=== PATIENT | male | born 1955 | race Caucasian/White ===

== ENCOUNTER 2016-08-25 19:06 | Observation (INO) | payer BC, OTHER ==
[2016-08-25 20:47] LABS: Hematocrit 45 % (42-52); Mean Corpuscular HGB Conc 33 g/dl (31-36); Mean Corpuscular Hemoglobin 28 pg (27-31); Mean Corpuscular Volume 84 fL (80-94); Mean Platelet Volume 7 um3 (7.4-10.4); Red Blood Count 5.42 10^6/ul (4.0-5.4); Red Cell Distribution Width 14 % (10.5-15)
[2016-08-25 21:02] LABS: Albumin 4.1 g/dL (3.2-5.2); BUN/Creatinine Ratio 22.5 (8-20); EGFR African American 126.4 (>60); EGFR Non-African American 98.3 (>60); Globulin 3.1 g/dL (2-4); Potassium 3.7 mmol/L (3.5-5.0); Total Bilirubin 0.3 mg/dL (0.2-1.0); Total Protein 7.2 g/dL (6.4-8.9)
[2016-08-25] MEDS ORDERED: Aspirin TAB* 325 MG PO ONE (21:49)
--- NOTE | 2016-08-25 22:19 | ED ---
I, Herberth,Kamryn, scribed for Jose C Child MD on 08/25/16 at 2 . Lower Extremity - HPI Summary HPI Summary: This 61 y/o male presents to ED for gradually worsening LLE #1 toe pain since 3 days ago. Positive edema and erythema. Negative CP and SOB. Pt and present at bedside also expresses concern about discoloration. Positive for subjective fever and stabbing pain. PMHx includes kidney CA s/p partial nephrectomy, HTN, and DVT at LLE. Hx of coumadin tx for 6 months. He is currently not on blood thinner. Pt is not a current smoker. FHx is positive for kidney CA but denies any blood clotting dz. Primary care used to involve Dr. Jacome at [facility], but has not follow up with his PCP since about a year ago. - History of Current Complaint Chief Complaint: EDExtremityLower Stated Complaint: LEFT FOOT COMPLAINT Time Seen by Provider: 08/25/16 19:58 Hx Obtained From: Patient, Family/Charge Weigher - present at bedside Mechanism Of Injury: Unknown Onset of Pain: Days Onset/Duration: Still Present - since 3 weeks Pain Intensity: 3 Pain Scale Used: 0-10 Numeric Timing: Constant Location: Is Discrete @ - LLE great toe Character Of Pain: Sharp, Dull Associated Signs And Symptoms: Positive: Swelling, Redness Aggravating Factor(s): Standing, Other - pressure by close-toe shoes Alleviating Factor(s): Rest Able to Bear Weight: Yes - Allergies/Home Medications Allergies/Adverse Reactions: Allergies Allergy/AdvReac Type Severity Reaction Status Date / Time CONTRAST Allergy Nausea And Uncoded 08/21/15 16:17 Vomiting PMH/Surg Hx/FS Hx/Imm Hx Endocrine/Hematology History: Denies: Hx Diabetes Cardiovascular History: Reports: Hx Deep Vein Thrombosis, Hx Hypercholesterolemia, Hx Hypertension - Cancer History Cancer Type, Location and Year: kidney - Surgical History Surgery Procedure, Year, and Place: partial nephrectomy Infectious Disease History: No Infectious Disease History: Denies: Traveled Outside the [place] in Last 30 Days - Family History Known Family History: Positive: Other - Positive for kidney CA Negative: Blood Disorder - Social History Alcohol Use: None Hx Substance Use: No Substance Use Type: Reports: None Hx Tobacco Use: No Smoking Status (MU): Never Smoked Tobacco Review of Systems Positive: Fever - subjective fever at LLE toe Negative: Chest Pain Negative: Shortness Of Breath Positive: Other - discoloration and edema at LLE great toe Negative: Anxious, Depressed All Other Systems Reviewed And Are Negative: Yes Physical Exam - Summary Physical Exam Summary: General: Comfortable, pleasant, alert HEENT: Moist mucosa Neck: soft, supple, no adenopathy, no edema Heart: S1, S2, RRR, no murmurs, rubs, or gallops Lungs: Clear to auscultation, breathing comfortable, no wheezes or rales. Abdominal: Soft, flat, nontender Extremities: No edema, no calf tenderness. Distal pulse at BLE intact including DP and posterior tibia. Foot is warm to touch. LLE great toe is cooler than the rest of the foot. cap refills 3 seconds. Dusky hues at medial aspect of the toe. Distal aspect is slightly mottled and has cap refill of 3 seconds. Neuro: Alert and oriented x 3. Psych: Logical, coherent Triage Information Reviewed: Yes Vital Signs On Initial Exam: Initial Vitals Temp Pulse Resp BP Pulse Ox 97.9 F 81 16 180/115 98 08/25/16 19:10 08/25/16 19:10 08/25/16 19:10 08/25/16 19:10 08/25/16 19:10 Vital Signs Reviewed: Yes Diagnostics - Vital Signs Vital Signs Temp Pulse Resp BP Pulse Ox 08/25/16 19:10 97.9 F 81 16 180/115 98 - Laboratory Lab Results: Lab Results 08/25/16 08/25/16 08/25/16 Range/Units 20:30 20:30 20:30 WBC 7.0 (3.5-10.8) 10^3/ul RBC 5.42 H (4.0-5.4) 10^6/ul Hgb 15.0 (14.0-18.0) g/dl Hct 45 (42-52) % MCV 84 (80-94) fL MCH 28 (27-31) pg MCHC 33 (31-36) g/dl RDW 14 (10.5-15) % Plt Count 515 H (150-450) 10^3/ul MPV 7 L (7.4-10.4) um3 Neut % (Auto) 64.8 (38-83) % Lymph % (Auto) 26.8 (25-47) % [place] % (Auto) 6.1 (1-9) % Eos % (Auto) 1.6 (0-6) % Baso % (Auto) 0.7 (0-2) % Absolute Neuts (auto) 4.6 (1.5-7.7) 10^3/ul Absolute Lymphs (auto) 1.9 (1.0-4.8) 10^3/ul Absolute Monos (auto) 0.4 (0-0.8) 10^3/ul Absolute Eos (auto) 0.1 (0-0.6) 10^3/ul Absolute Basos (auto) 0.1 (0-0.2) 10^3/ul Absolute Nucleated RBC 0.01 10^3/ul Nucleated RBC % 0.1 INR (Anticoag Therapy) 0.99 (0.89-1.11) Sodium 138 (133-145) mmol/L Potassium 3.7 (3.5-5.0) mmol/L Chloride 103 (101-111) mmol/L Carbon Dioxide 28 (22-32) mmol/L Anion Gap 7 (2-11) mmol/L BUN 18 (6-24) mg/dL Creatinine 0.80 (0.67-1.17) mg/dL Est GFR ( Amer) 126.4 (>60) Est GFR (Non-Af Amer) 98.3 (>60) BUN/Creatinine Ratio 22.5 H (8-20) Glucose 128 H (70-100) mg/dL Lactic Acid (0.5-2.0) mmol/L Calcium 9.0 (8.6-10.3) mg/dL Total Bilirubin 0.30 (0.2-1.0) mg/dL AST 17 (13-39) U/L ALT 22 (7-52) U/L Alkaline Phosphatase 104 (34-104) U/L Total Protein 7.2 (6.4-8.9) g/dL Albumin 4.1 (3.2-5.2) g/dL Globulin 3.1 (2-4) g/dL Albumin/Globulin Ratio 1.3 (1-3) 08/25/16 Range/Units 20:30 WBC (3.5-10.8) 10^3/ul RBC (4.0-5.4) 10^6/ul Hgb (14.0-18.0) g/dl Hct (42-52) % MCV (80-94) fL MCH (27-31) pg MCHC (31-36) g/dl RDW (10.5-15) % Plt Count (150-450) 10^3/ul MPV (7.4-10.4) um3 Neut % (Auto) (38-83) % Lymph % (Auto) (25-47) % [place] % (Auto) (1-9) % Eos % (Auto) (0-6) % Baso % (Auto) (0-2) % Absolute Neuts (auto) (1.5-7.7) 10^3/ul Absolute Lymphs (auto) (1.0-4.8) 10^3/ul Absolute Monos (auto) (0-0.8) 10^3/ul Absolute Eos (auto) (0-0.6) 10^3/ul Absolute Basos (auto) (0-0.2) 10^3/ul Absolute Nucleated RBC 10^3/ul Nucleated RBC % INR (Anticoag Therapy) (0.89-1.11) Sodium (133-145) mmol/L Potassium (3.5-5.0) mmol/L Chloride (101-111) mmol/L Carbon Dioxide (22-32) mmol/L Anion Gap (2-11) mmol/L BUN (6-24) mg/dL Creatinine (0.67-1.17) mg/dL Est GFR ( Amer) (>60) Est GFR (Non-Af Amer) (>60) BUN/Creatinine Ratio (8-20) Glucose (70-100) mg/dL Lactic Acid 1.4 (0.5-2.0) mmol/L Calcium (8.6-10.3) mg/dL Total Bilirubin (0.2-1.0) mg/dL AST (13-39) U/L ALT (7-52) U/L Alkaline Phosphatase (34-104) U/L Total Protein (6.4-8.9) g/dL Albumin (3.2-5.2) g/dL Globulin (2-4) g/dL Albumin/Globulin Ratio (1-3) Result Diagrams: 08/25/16 20:30 08/25/16 20:30 Lab Statement: Any lab studies that have been ordered have been reviewed, and results considered in the medical decision making process. - CT CT Ab/P without contrast CT Interpretation Completed By: Radiologist - See EMR for official reading Re-Evaluation - Re-Evaluation First Eval Re-Evaluation Time: 21:59 Comment: MD in room to update plan of care involving CTA imagings, hospital admit, and possible transfer for vascular surgery treatment. Lower Extremity Course/Dx - Course Assessment/Plan: He comes in 2 weeks left great toe arterial compromised. Etiology unknown at this point. PMHx does include DVT at same LLE. Physical findings and plan of care are discussd with Dr. Lopez the hospitalist and Dr. Sheriff the vascular surgeon at [facility], who suggests aneurysm workup consisting CTA Abd, CTA BLE run off, and CTA chest at [facility]. If any positive findings, pt will be appropriately transferred to facility with available service from vascular surgeon. Unfortunately after further discussion, Pt reports allergy to IV contrast and had partial nephrectomy. From the past workup , his allergic reaction has become progressively worse each time. In place of that we will do dry CT scan. We will start with CT abd/chest to look for anuerysm as well as Arterial artery US to look for dissection. Should these all be negative, Dr. Lopez will accept the admission of this patient. Dr. Samuels made aware of this plan. Transfer is still a possibility should we find any positive findings for dissection or anuerysm. 20 minutes later, the pt's states that they just remembered that he does have hx of AAA. Prior studies were here. We will further characterize with studies and possibly transfer. Dr. Samuels has been updated. - Diagnoses Provider Diagnoses: Arterial embolism - Physician Notifications Discussed Care of Patient With: Dr. Patricia (Ortho) at 2025 PM -- appropriate for workup for possible anterior emboli. Dr. Lopez (Hospitalist) at 2123 PM - - recommends talking vascular surgeon first. [facility] Transfer center paged at 4 PM. Re-paged at 2130 PM. Call returned at 2132 PM. Per RN, there is currently no bed available. We are still attempting to get the vascular surgeon' s consult, and currently waiting a call-back. Dr. Sheriff (Vascular surgeon at [facility]) at 2141 PM. -- to get an aneurysm workup consisting of CTA abd, BLE run off. CTA chest if negative, echocardiogram for jamari thrombose. Will admit the pt to hospital for these workup. Dr. Sheriff states all these workups don' t have to be done tonight. If anything found, pt will be transported else where for vascular surgoen's treatment. At this point, recommended starting on ASA, not heparin. Again confirms that there is no bed available. Dr. Lopez ( Hospitalist) at 2151 PM. Discharge - Discharge Plan Condition: Stable Disposition: OTHER Discharge Disposition Comment: Signed out at shift change. Referrals: Betty Jacome MD [Primary Care Provider] - The documentation as recorded by the Herberth mccoy Soohyun accurately reflects the service I personally performed and the decisions made by me, Jose C Child MD.
[2016-08-25] MEDS ORDERED: hydrALAZINE IV* 20 MG/ML VIAL IV SLOW PU ONE (22:27)
[2016-08-25] MEDS ORDERED: amLODIPine TAB* 5 MG PO ONE (22:28)
--- NOTE | 2016-08-25 22:30 | ED ---
Progress - Progress Note Progress Note: Pt blood pressure was 160/115. We will re check, if over 140/90, we will treat. if this does not improve then Dr. Samuels to be notified for possible labetalol or esmolol drip. HR is 80s. Discussion regarding this was had with patient, and bedside RN. Pt denies abd or back pain or flank pain or groin pain. again this began 2 weeks ago. I do not believe we need to treat this at this point as acute dissection. LIkely patient may need transfer. Re-Evaluation - Re-Evaluation First Eval Re-Evaluation Time: 21:59 Comment: MD in room to update plan of care involving CTA imagings, hospital admit, and possible transfer for vascular surgery treatment. Course/Dx - Diagnoses Provider Diagnoses: Arterial embolism - Provider Notifications Discussed Care Of Patient With: Dr. Patricia (Ortho) at 2025 PM -- appropriate for workup for possible anterior emboli. Dr. Lopez (Hospitalist) at 2123 PM - - recommends talking vascular surgeon first. [facility] Transfer center paged at 2123 PM. Re-paged at 2130 PM. Call returned at 2132 PM. Per RN, there is currently no bed available. We are still attempting to get the vascular surgeon' s consult, and currently waiting a call-back. Dr. Sheriff (Vascular surgeon at [facility]) at 2140 PM. -- to get an aneurysm workup consisting of CTA abd, BLE run off. CTA chest if negative, echocardiogram for jamari thrombose. Will admit the pt to hospital for these workup. Dr. Sheriff states all these workups don' t have to be done tonight. If anything found, pt will be transported else where for vascular surgoen's treatment. At this point, recommended starting on ASA, not heparin. Again confirms that there is no bed available. Dr. Lopez ( Hospitalist) at 2150 PM.
--- NOTE | 2016-08-25 23:16 | RAD ---
INDICATION: Blue LEFT great toe. Assess for aneurysm. Post partial nephrectomy. COMPARISON: August 21, 2015 CT. April 12, [address] contrast-enhanced CT documenting bilateral parapelvic renal cysts and absence of hydronephrosis. TECHNIQUE: Multidetector CT images were obtained from the lung apices to the ischial tuberosities without contrast. Assessment of the viscera limited without contrast. CHEST REPORT: Clear lungs and pleural spaces. Negative for thoracic lymphadenopathy, cardiomegaly, pericardial effusion. Normal diameter thoracic aorta. Negative for suspicious thoracic osseous lesions. Multilevel thoracic degenerative spondylosis. CHEST IMPRESSION: No acute intrathoracic disease evident. ABDOMEN PELVIS REPORT: Unremarkable unenhanced liver. Contracted gallbladder with multiple small stones without additional CT abnormality of the gallbladder. Negative for biliary dilatation. Unremarkable pancreas and spleen. Negative for CT abnormality of the upper GI, small bowel, or medially extending into cecal appendix. Mild diverticulosis of the colon primarily involving the descending and sigmoid segments without findings of diverticulitis. Negative for ascites, free air, hernias. Normal adrenal glands. Bilateral large parapelvic renal cysts. Negative for hydronephrosis. 1.8 cm simple cortical cyst upper pole RIGHT kidney. Minimal dystrophic calcification at the site of the lateral midpole LEFT focal renal lesion resection. No suspicious focal renal lesions evident. Unremarkable ureters and moderately distended urinary bladder. Unremarkable prostate. Symmetric seminal vesicles. Negative for lymphadenopathy. Fusiform aneurysm of the infrarenal abdominal aorta measuring up to 3.6 x 3.3 cm orthogonal diameter compared with 3.4 x 3.0 cm on the August 21, 2015 exam. The aneurysm extends approximate 5.5 cm cephalocaudal without gross change. Negative for periaortic hematoma. 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 No suspicious focal osseous lesions evident. Bilateral hip and lumbar sacral spine degenerative arthropathy. ABDOMEN PELVIS IMPRESSION: 1. Fusiform aneurysm of the infrarenal abdominal aorta measuring up to 3.6 x 3.3 cm orthogonal diameter compared with 3.4 x 3.0 cm on the August 21, 2015 exam. 2. Cholelithiasis. 3. No suspicious focal renal lesions within limits of noncontrast CT. Negative for hydronephrosis. 4. Colonic diverticulosis without findings of diverticulitis.
[2016-08-26] MEDS ORDERED: traMADol TAB* 50 MG PO PRN (03:44)
[2016-08-26] MEDS ORDERED: traMADol TAB* 50 MG ONE (03:53)
[2016-08-26] MEDS ORDERED: Ondansetron INJ* 2 MG/ML VIAL IV PRN (03:59)
[2016-08-26] MEDS ORDERED: Acetaminophen TAB* 325 MG PO PRN (03:59)
[2016-08-26] MEDS ORDERED: Melatonin (NF) 3 MG TAB PO PRN (03:59)
[2016-08-26] MEDS ORDERED: oxyCODONE TAB* 5 MG TAB PO PRN (03:59)
--- NOTE | 2016-08-26 04:02 | HP ---
H&P (Free Text) History and Physical: PCP: none Date/Time of Evaluation: 08/26/2016 0115 CC: L 1st toe painful & discolored HPI: Mr Nieves is a 61YO [place] male who speaks Welsh well. He has a HX of renal cell CA s/p partial L nephrectomy, HTN, LLE DVT s/p 6months anticoagulation, & 3cm AAA whose historic details are difficult to chronologically delineate. He reports onset 2-4weeks ago of L 1st toe pain and discoloration which has been continuous and possibly worsening. He denies injury , although personally relates it to wearing tight shoes. There has been no F/C, other wounds, or issues. He and his report the toe is reddish maroon while elevated and deep purple/black while down. He denies HX atrial fibrillation or irregular pulse. Dr Child, ED, reports the toe is cyanotic with poor capillary refill, but with intact B dorsalis pedis and posterior tibial pulses. Work up reveals hypertensive, but otherwise stable vitals. Labs are unremarkable. Vascular consult via phone was requested upon contacting me for admission. Dr Lay, vascular surgery [place], advised this was classic "Blue Toe Syndrome" and advised evaluation for embolic source in the LLE arterial tree, CTA chest/abd/pel, and ECHO. She did not feel the 3.6cm AAA was a likely source and was not a candidate for intervention based on size alone although further evaluation should be made via MRA to definitively r/o significant thrombus. In the interim she advised not to anticoagulate and just use aspirin. PMedHx renal cell CA s/p partial L nephrectomy HTN HLD HX LLE DVT 3.6cm AAA Allergies CONTRAST Allergy (Uncoded 08/21/15 16:17) Nausea And Vomiting Ambulatory Orders Lisinopril TAB* [Prinivil TAB*] 5 mg PO DAILY 08/21/15 Simvastatin (NF) [Zocor (NF)] 40 mg PO DAILY 08/21/15 traMADol TAB* [Ultram*] 50 mg PO Q6HR PRN #20 tab 08/21/15 PSurgHx partial L nephrectomy SocHx: no tobacco, mild alcohol, no recreational drugs; lives with his ; works maintenance; full code status FamHx: Mother & Father passed of "old age". ROS: as above, otherwise reviewed and all were negative Constitutional: NAD, normally developed, mildly overweight white [place] male vitals: Vital Signs Temp 36.8 C 08/26/16 02:38 Pulse 64 08/26/16 03:00 Resp 16 08/26/16 03:00 BP 146/100 08/26/16 03:00 Pulse Ox 96 08/26/16 03:00 Intake & Output 08/25/16 08/25/16 08/26/16 11:59 23:59 11:59 Weight 86.183 kg HEENM: atraumatic; sclera/conjunctiva: non-icteric/clear; hearing: clinically intact; oropharynx: clear, mucosa moist Neck: soft tissue: non-tender; thyroid: normal Pulmonary: clear to auscultation bilaterally, good aeration, no accessory muscle use CV: RR/RR, normal S1S2, no carotid bruit, no jugular venous distention, 2+ B DP/ PT, no edema Abdominal: soft, non-distended, non-tender, no rebound/guarding/rigidity, normoactive bowel sounds, no hepatosplenomegaly or masses, no costovertebral angle tenderness Musculoskeletal: general: grossly intact; gait: stable Integumental: L 1st toe with atrophic skin, livido reticularis, & poor capillary refill; tender to touch laterally, no open wound Psychiatric orientation: AA&O to PPS affect: calm mood: cooperative eye contact: good content: reliable responses: timely insight: good to fair Testing: Lab Results 08/25/16 08/25/16 08/25/16 Range/Units 20:30 20:30 20:30 WBC 7.0 (3.5-10.8) 10^3/ul RBC 5.42 H (4.0-5.4) 10^6/ul Hgb 15.0 (14.0-18.0) g/dl Hct 45 (42-52) % MCV 84 (80-94) fL MCH 28 (27-31) pg MCHC 33 (31-36) g/dl RDW 14 (10.5-15) % Plt Count 515 H (150-450) 10^3/ul MPV 7 L (7.4-10.4) um3 Neut % (Auto) 64.8 (38-83) % Lymph % (Auto) 26.8 (25-47) % [place] % (Auto) 6.1 (1-9) % Eos % (Auto) 1.6 (0-6) % Baso % (Auto) 0.7 (0-2) % Absolute Neuts (auto) 4.6 (1.5-7.7) 10^3/ul Absolute Lymphs (auto) 1.9 (1.0-4.8) 10^3/ul Absolute Monos (auto) 0.4 (0-0.8) 10^3/ul Absolute Eos (auto) 0.1 (0-0.6) 10^3/ul Absolute Basos (auto) 0.1 (0-0.2) 10^3/ul Absolute Nucleated RBC 0.01 10^3/ul Nucleated RBC % 0.1 INR (Anticoag Therapy) 0.99 (0.89-1.11) Sodium 138 (133-145) mmol/L Potassium 3.7 (3.5-5.0) mmol/L Chloride 103 (101-111) mmol/L Carbon Dioxide 28 (22-32) mmol/L Anion Gap 7 (2-11) mmol/L BUN 18 (6-24) mg/dL Creatinine 0.80 (0.67-1.17) mg/dL Est GFR ( Amer) 126.4 (>60) Est GFR (Non-Af Amer) 98.3 (>60) BUN/Creatinine Ratio 22.5 H (8-20) Glucose 128 H (70-100) mg/dL Lactic Acid (0.5-2.0) mmol/L Calcium 9.0 (8.6-10.3) mg/dL Total Bilirubin 0.30 (0.2-1.0) mg/dL AST 17 (13-39) U/L ALT 22 (7-52) U/L Alkaline Phosphatase 104 (34-104) U/L Total Protein 7.2 (6.4-8.9) g/dL Albumin 4.1 (3.2-5.2) g/dL Globulin 3.1 (2-4) g/dL Albumin/Globulin Ratio 1.3 (1-3) 08/25/16 Range/Units 20:30 WBC (3.5-10.8) 10^3/ul RBC (4.0-5.4) 10^6/ul Hgb (14.0-18.0) g/dl Hct (42-52) % MCV (80-94) fL MCH (27-31) pg MCHC (31-36) g/dl RDW (10.5-15) % Plt Count (150-450) 10^3/ul MPV (7.4-10.4) um3 Neut % (Auto) (38-83) % Lymph % (Auto) (25-47) % [place] % (Auto) (1-9) % Eos % (Auto) (0-6) % Baso % (Auto) (0-2) % Absolute Neuts (auto) (1.5-7.7) 10^3/ul Absolute Lymphs (auto) (1.0-4.8) 10^3/ul Absolute Monos (auto) (0-0.8) 10^3/ul Absolute Eos (auto) (0-0.6) 10^3/ul Absolute Basos (auto) (0-0.2) 10^3/ul Absolute Nucleated RBC 10^3/ul Nucleated RBC % INR (Anticoag Therapy) (0.89-1.11) Sodium (133-145) mmol/L Potassium (3.5-5.0) mmol/L Chloride (101-111) mmol/L Carbon Dioxide (22-32) mmol/L Anion Gap (2-11) mmol/L BUN (6-24) mg/dL Creatinine (0.67-1.17) mg/dL Est GFR ( Amer) (>60) Est GFR (Non-Af Amer) (>60) BUN/Creatinine Ratio (8-20) Glucose (70-100) mg/dL Lactic Acid 1.4 (0.5-2.0) mmol/L Calcium (8.6-10.3) mg/dL Total Bilirubin (0.2-1.0) mg/dL AST (13-39) U/L ALT (7-52) U/L Alkaline Phosphatase (34-104) U/L Total Protein (6.4-8.9) g/dL Albumin (3.2-5.2) g/dL Globulin (2-4) g/dL Albumin/Globulin Ratio (1-3) ECG, personally reviewed: NSR rate 78, T-wave abnormalities II/III/AVF CTA chest/abd/pel, personally reviewed: ABDOMEN PELVIS IMPRESSION: 1. Fusiform aneurysm of the infrarenal abdominal aorta measuring up to 3.6 x 3.3 cm orthogonal diameter compared with 3.4 x 3.0 cm on the August 21, 2015 exam. 2. Cholelithiasis. 3. No suspicious focal renal lesions within limits of noncontrast CT. Negative for hydronephrosis. 4. Colonic diverticulosis without findings of diverticulitis. US LLE arterial: IMPRESSION: stenosis of the distal L superficial femoral artery US aorta: IMPRESSION: 3.9cm wide fusiform distal aortic aneurysm, without involvement of the bifurcation. Borderline dilated right common iliac artery. Impression: 61M HX 3.6cm AAA, DVT LLE, renal cell CA s/p partial L nephrectomy presents with 2-4 weeks of blue toe syndrome DIAGNOSIS & PLAN Primary blue toe syndrome : aspirin 325mg PO daily : MRA abdomen to evaluate for thrombus in AAA : ECHO in AM : ? source plaque from L SFA stenosis seen on LLE arterial duplex : pain control : supportive care Secondary renal cell CA s/p partial L nephrectomy : no acute issues HTN : continue lisinopril, trend HLD : continue simvastatin HX LLE DVT : heparin SQ 3.6cm AAA : periodic outpatient monitoring Admission Rational: observation for evaluation of blue toe syndrome DVTp: heparin SQ Code Status: full HCP:
[2016-08-26] MEDS: Omeprazole CAP* 20 MG PO SCH (06:35)
--- NOTE | 2016-08-26 07:28 | RAD ---
INDICATION: Abdominal aortic aneurysm, blue toe syndrome. COMPARISON: Comparison is made with a prior CT of the chest, abdomen and pelvis obtained earlier in the day. TECHNIQUE: Multiple real-time, color Doppler and Doppler tracings of the abdominal aorta were obtained. FINDINGS: There is a fusiform shaped aneurysm of the distal abdominal aorta measuring 3.9 cm transverse 3.7 cm AP and measuring 4.4 cm in length. No intraluminal dissection flap is appreciated. The right common iliac artery appears ectatic measuring 1.8 cm in transverse dimension. The left common iliac artery appears to be within normal limits. IMPRESSION: FUSIFORM SHAPED ANEURYSM OF THE DISTAL ABDOMINAL AORTA MEASURING 3.9 CM IN MAXIMUM TRANSVERSE DIMENSION.
--- NOTE | 2016-08-26 08:02 | RAD ---
Indication: Blue LEFT great toe. Aneurysm of the abdominal aorta on noncontrast CT of the same date. Comparison: Noncontrast CT of the abdomen and pelvis of the same day. Technique: Arterial ultrasound with Doppler LEFT lower extremity. Report: Flow with triphasic waveforms detected within the common femoral, profunda femoral, proximal, mid, and distal segments of the superficial femoral, popliteal, posterior tibial, peroneal, and anterior tibial arteries with peak systolic velocities documented on PACS. At the distal segment of the superficial femoral artery at the level of the adductor canal there is elevation of the peak systolic velocity up to 345 cm/s compared with 108 cm/s more proximally consistent with hemodynamic significant stenosis likely approaching 70%. Negative for popliteal artery aneurysm. IMPRESSION: At the distal segment of the superficial femoral artery at the level of the adductor canal there is elevation of the peak systolic velocity up to 345 cm/s compared with 108 cm/s more proximally consistent with hemodynamic significant stenosis likely approaching 70%.
[2016-08-26] MEDS ORDERED: Lisinopril TAB* 5 MG PO SCH (09:00)
[2016-08-26] MEDS ORDERED: Influenza VAC *QUAD* 2016-17* 0.5 ML SYRINGE IM ONE (09:00)
[2016-08-26] MEDS: Aspirin TAB* 325 MG PO SCH (09:17)
[2016-08-26] MEDS: Atorvastatin* 20 MG TAB PO SCH (09:17)
[2016-08-26] MEDS: Docusate CAP* 100 MG PO SCH ×2 (09:18→20:00)
--- NOTE | 2016-08-26 10:33 | PN ---
Subjective Date of Service: 08/26/16 Interval History: Pt is feeling well. He denies any pain in his L 1st toe currently. He thinks the coloring of the toe is improved at this time but he states he thinks it is because his legs have been elevated since getting to the floor. No SOB. No CP. Objective Active Medications: Acetaminophen (Tylenol Tab*) 650 mg PO Q6H PRN PRN Reason: FEVER/PAIN Aspirin (Aspirin Tab*) 325 mg PO DAILY [facility] Last Admin: 08/26/16 09:17 Dose: 325 mg Atorvastatin Calcium (Lipitor*) 20 mg PO DAILY [facility] Last Admin: 08/26/16 09:17 Dose: 20 mg Docusate Sodium (Colace Cap*) 200 mg PO BID [facility] Last Admin: 08/26/16 09:18 Dose: 200 mg Heparin Sodium (Porcine) (Heparin Vial(*)) 5,000 units SUBCUT Q8HR [facility] Lisinopril (Prinivil Tab*) 5 mg PO DAILY [facility] Last Admin: 08/26/16 09:17 Dose: 5 mg Melatonin (Melatonin (Nf)) 3 mg PO BEDTIME PRN; Protocol PRN Reason: Sleep Omeprazole (Prilosec Cap*) 20 mg PO DAILY@0600 [facility] Last Admin: 08/26/16 06:35 Dose: 20 mg Ondansetron HCl (Zofran Inj*) 4 mg IV Q6H PRN PRN Reason: NAUSEA Oxycodone HCl (Roxycodone Tab*) 5 mg PO Q4H PRN PRN Reason: PAIN Last Admin: 08/26/16 09:18 Dose: 5 mg Tramadol HCl (Ultram*) 50 mg PO Q6HR PRN PRN Reason: PAIN Last Admin: 08/26/16 04:00 Dose: 50 mg Vital Signs 08/26/16 08/26/16 08/26/16 02:00 02:03 02:30 Temperature Pulse Rate 70 70 73 Respiratory 15 10 18 Rate Blood Pressure 154/97 159/92 (mmHg) O2 Sat by Pulse 95 96 96 Oximetry 08/26/16 08/26/16 08/26/16 02:38 03:00 03:45 Temperature 98.2 F 98.1 F Pulse Rate 64 69 Respiratory 16 18 Rate Blood Pressure 146/100 159/104 (mmHg) O2 Sat by Pulse 96 98 Oximetry 08/26/16 08/26/16 08/26/16 04:00 04:21 06:00 Temperature Pulse Rate Respiratory 16 18 16 Rate Blood Pressure (mmHg) O2 Sat by Pulse Oximetry 08/26/16 08/26/16 08/26/16 07:19 08:00 09:18 Temperature 97.7 F Pulse Rate 66 Respiratory 16 16 16 Rate Blood Pressure 124/80 (mmHg) O2 Sat by Pulse 96 Oximetry Oxygen Devices in Use Now: None Appearance: Middle aged male lying flat in bed, NAD Eyes: No Scleral Icterus Ears/Nose/Mouth/Throat: Mucous Membranes Moist Respiratory: Symmetrical Chest Expansion and Respiratory Effort, Clear to Auscultation Cardiovascular: NL Sounds; No Murmurs; No JVD, RRR, No Edema Abdominal: NL Sounds; No Tenderness; No Distention Extremities: - - L 1st toe with small, ~3/4cm laceration covered in "liquid bandaid," warm to touch, slightly dusky in color compared to R 1st toe Skin: No Rash or Ulcers, No Nodules or Sclerosis Neurological: Alert and Oriented x 3 Result Diagrams: 08/25/16 20:30 08/25/16 20:30 Additional Lab and Data: Lab Results 08/25/16 08/25/16 08/25/16 Range/Units 20:30 20:30 20:30 WBC 7.0 (3.5-10.8) 10^3/ul RBC 5.42 H (4.0-5.4) 10^6/ul Hgb 15.0 (14.0-18.0) g/dl Hct 45 (42-52) % MCV 84 (80-94) fL MCH 28 (27-31) pg MCHC 33 (31-36) g/dl RDW 14 (10.5-15) % Plt Count 515 H (150-450) 10^3/ul MPV 7 L (7.4-10.4) um3 Neut % (Auto) 64.8 (38-83) % Lymph % (Auto) 26.8 (25-47) % [place] % (Auto) 6.1 (1-9) % Eos % (Auto) 1.6 (0-6) % Baso % (Auto) 0.7 (0-2) % Absolute Neuts (auto) 4.6 (1.5-7.7) 10^3/ul Absolute Lymphs (auto) 1.9 (1.0-4.8) 10^3/ul Absolute Monos (auto) 0.4 (0-0.8) 10^3/ul Absolute Eos (auto) 0.1 (0-0.6) 10^3/ul Absolute Basos (auto) 0.1 (0-0.2) 10^3/ul Absolute Nucleated RBC 0.01 10^3/ul Nucleated RBC % 0.1 INR (Anticoag Therapy) 0.99 (0.89-1.11) Sodium 138 (133-145) mmol/L Potassium 3.7 (3.5-5.0) mmol/L Chloride 103 (101-111) mmol/L Carbon Dioxide 28 (22-32) mmol/L Anion Gap 7 (2-11) mmol/L BUN 18 (6-24) mg/dL Creatinine 0.80 (0.67-1.17) mg/dL Est GFR ( Amer) 126.4 (>60) Est GFR (Non-Af Amer) 98.3 (>60) BUN/Creatinine Ratio 22.5 H (8-20) Glucose 128 H (70-100) mg/dL Lactic Acid (0.5-2.0) mmol/L Calcium 9.0 (8.6-10.3) mg/dL Total Bilirubin 0.30 (0.2-1.0) mg/dL AST 17 (13-39) U/L ALT 22 (7-52) U/L Alkaline Phosphatase 104 (34-104) U/L Total Protein 7.2 (6.4-8.9) g/dL Albumin 4.1 (3.2-5.2) g/dL Globulin 3.1 (2-4) g/dL Albumin/Globulin Ratio 1.3 (1-3) 08/25/16 Range/Units 20:30 WBC (3.5-10.8) 10^3/ul RBC (4.0-5.4) 10^6/ul Hgb (14.0-18.0) g/dl Hct (42-52) % MCV (80-94) fL MCH (27-31) pg MCHC (31-36) g/dl RDW (10.5-15) % Plt Count (150-450) 10^3/ul MPV (7.4-10.4) um3 Neut % (Auto) (38-83) % Lymph % (Auto) (25-47) % [place] % (Auto) (1-9) % Eos % (Auto) (0-6) % Baso % (Auto) (0-2) % Absolute Neuts (auto) (1.5-7.7) 10^3/ul Absolute Lymphs (auto) (1.0-4.8) 10^3/ul Absolute Monos (auto) (0-0.8) 10^3/ul Absolute Eos (auto) (0-0.6) 10^3/ul Absolute Basos (auto) (0-0.2) 10^3/ul Absolute Nucleated RBC 10^3/ul Nucleated RBC % INR (Anticoag Therapy) (0.89-1.11) Sodium (133-145) mmol/L Potassium (3.5-5.0) mmol/L Chloride (101-111) mmol/L Carbon Dioxide (22-32) mmol/L Anion Gap (2-11) mmol/L BUN (6-24) mg/dL Creatinine (0.67-1.17) mg/dL Est GFR ( Amer) (>60) Est GFR (Non-Af Amer) (>60) BUN/Creatinine Ratio (8-20) Glucose (70-100) mg/dL Lactic Acid 1.4 (0.5-2.0) mmol/L Calcium (8.6-10.3) mg/dL Total Bilirubin (0.2-1.0) mg/dL AST (13-39) U/L ALT (7-52) U/L Alkaline Phosphatase (34-104) U/L Total Protein (6.4-8.9) g/dL Albumin (3.2-5.2) g/dL Globulin (2-4) g/dL Albumin/Globulin Ratio (1-3) Assess/Plan/Problems-Billing Mr Nieves is a 61 yo M who has a h/o AAA, HTN, HLD and RCC s/p partial nephrectomy who presented to the ER with c/o L 1st toe pain and discoloration concerning for blue toe syndrome - Patient Problems (1) Blue toe syndrome of left lower extremity Current Visit: Yes Status: Acute Code(s): I75.022 - ATHEROEMBOLISM OF LEFT LOWER EXTREMITY SNOMED Code(s): 320791329 Comment: There is concern for blue toe syndrome of the L 1st toe. Abd US showed a AAA that is relatively stable in size. Radiology has subsequently reviewed the images and did not see any evidence of significant clot in the aneurysm and questions if the MRA is truely needed. I think CTA would be sufficient however the patient refuses as he feels poorly when he has the contrast dye (nausea, flushing, SOB). I do not think this representes a true allergy but side effect. Will touch base with Dr. Sheriff (vascular surgeon who was contacted last night) if further imaging is needed. Continue ASA 325mg daily. (2) HTN (hypertension) Current Visit: Yes Status: Acute Code(s): I10 - ESSENTIAL (PRIMARY) HYPERTENSION SNOMED Code(s): 81059971 Comment: BP was markedly elevated on presentation to the ER. Improved over the last several hours. Continue lisinopril, monitor the pressures and if necessary adjust his regimen. (3) HLD (hyperlipidemia) Current Visit: Yes Status: Acute Code(s): E78.5 - HYPERLIPIDEMIA, UNSPECIFIED SNOMED Code(s): 87845450 Comment: Check lipid profile. Continue lipitor. (4) DVT prophylaxis Current Visit: Yes Status: Acute Code(s): JAP6821 - SNOMED Code(s): 772073413 Comment: SQ heparin (5) Full code status Current Visit: Yes Status: Acute Code(s): Z78.9 - OTHER SPECIFIED HEALTH STATUS SNOMED Code(s): 668854363
--- NOTE | 2016-08-26 10:54 | ECHO ---
Patient: DOMINGO MOBLEY [facility] Rec#: [id number] : 1955 Date: 08/26/2016 Age: 61y Height: 177.8 cm / 70.0 in Weight: 86.2 kg / 190.0 lbs Sex: M BSA: 2 Room#: [facility] Admit Date#: 08/26/2016 Type: Inpatient Referring: Jan Lopez MD Reading: Gerber Smith MD Business Services Coordinator: Arin Tabor RN RDCS CC: Betty Jacome MD Transthoracic Echocardiogram Indication: Blue toe syndrome BP: 159/104 HR: 68 Rhythm: NSR Findings History: HTN, HLD, renal cell cancer, LLE DVT, fusiform aneurysm of the distal abdominal aorta Technical Comments: The study quality is fair. Completed at 0950. Left Ventricle: The left ventricular chamber size is normal. Mild concentric left ventricular hypertrophy is observed. Global left ventricular wall motion and contractility are within normal limits. There is mildly decreased left ventricular systolic function. The estimated ejection fraction is 45-50%. Abnormal left ventricular diastolic filling is observed, consistent with impaired relaxation. The absence of left atrial enlargement suggests this finding may not be of clinical significance. Left Atrium: The left atrial chamber size is normal. Right Ventricle: The right ventricular cavity size is normal. The right ventricular global systolic function is normal. Right Atrium: The right atrial cavity size is normal. A patent foramen ovale is not demonstrated by color Doppler. No bubble study ordered. Aortic Valve: The aortic valve is trileaflet. The aortic valve leaflets are mildly thickened. There is a trace of aortic regurgitation. There is no evidence of aortic stenosis. Mitral Valve: The mitral valve leaflets are mildly thickened. There is a trace of mitral regurgitation. There is no evidence of mitral stenosis. Tricuspid Valve: The tricuspid valve leaflets are normal. There is trace tricuspid regurgitation. Unable to estimate the right ventricular systolic pressure. Pulmonic Valve: The pulmonic valve appears normal. There is a trace pulmonic regurgitation. There is no pulmonic stenosis. Pericardium: There is no significant pericardial effusion. A pericardial fat pad is visualized. Aorta: There is no dilatation of the ascending aorta. There is no dilatation of the aortic arch. There is no dilation of the aortic root. Pulmonary Artery: The main pulmonary artery appears normal. Venous: The inferior vena cava appears normal in size. There is a greater than 50% respiratory change in the inferior vena cava dimension. Conclusions Mild concentric left ventricular hypertrophy is observed. Left ventricular systolic function is borderline to mildly reduced The estimated ejection fraction is 45-50%. Abnormal left ventricular diastolic filling is observed, consistent with impaired relaxation. The absence of left atrial enlargement suggests this finding may not be of clinical significance. No significant valvular disease: There is a trace of mitral regurgitation. There is trace tricuspid regurgitation. Unable to estimate the right ventricular systolic pressure. There is a trace pulmonic regurgitation. No reports of prior studies offered for comparison. Measurements Name Value Normal Range RVDdMajor (2D) 3.2 cm (2.2 - 4.4) RAd ISD 4CH 4.5 cm (3.4 - 4.9) RA (A4C)W 4.3 cm (2.9 - 4.6) IVSd (2D) 1.2 cm (0.6 - 1) LVPWd (2D) 1.2 cm (0.6 - 1) LVIDd (2D) 4.3 cm (3.6 - 5.4) LVIDs (2D) 3.6 cm - LV FS (2D) 16 % (25 - 45) Aortic Annulus 2.1 cm (1.4 - 2.6) Ao root diameter (2D) 2.9 cm (2.1 - 3.5) Ascending Ao 3.2 cm (2.1 - 3.4) Aortic arch 2.5 cm (1.8 - 3.4) LA dimension (AP) 2D 3.9 cm (2.3 - 3.8) LAd ISD 4CH 4.9 cm (2.9 - 5.3) LA ISD 4CH W 4.2 cm (2.5 - 4.5) Name Value Normal Range LA ESV SP 4CH (A/L) 56 ml - LA ESV SP 2CH (A/L) 49 ml - LA ESV BP (A/L) 55 ml - LA ESV BP (A/L) index 26.9 ml/m2 - LA ESV SP 4CH (MOD) 53 ml - LA ESV SP 2CH (MOD) 48 ml - Name Value Normal Range MV E-wave Vmax 0.65 m/sec - MV deceleration time 372 msec - MV A-wave Vmax 1 m/sec - MV E:A ratio 0.64 ratio - LV septal e' Vmax 0.06 m/sec - LV lateral e' Vmax 0.08 m/sec - LV E:e' septal ratio 10.8 ratio - LV E:e' lateral ratio 8.1 ratio - Name Value Normal Range AV Vmax 1.5 m/sec - AV VTI 33.6 cm - AV peak gradient 9.3 mmHg - AV mean gradient 6.3 mmHg - LVOT Vmax 1.1 m/sec - LVOT VTI 22.5 cm - ROBER Vmax 0.6 m/sec - Name Value Normal Range IVC diameter 1.2 cm - Name Value Normal Range PV Vmax 1 m/sec -
[2016-08-26 11:10] LABS: HDL Cholesterol 27.6 mg/dL
[2016-08-26] MEDS ORDERED: diPHENhydraMINE IV* 50 MG/ML 1 ml VIAL (BENADRYL) IV PRN (17:25)
[2016-08-26] MEDS: predniSONE TAB* 50 MG PO SCH (18:03)
--- NOTE | 2016-08-26 19:10 | PN ---
Progress Note - Progress Note Note: I spoke with Dr. Sheriff ([facility]) she recommends CTA chest/ abd/pelvis to try to identify the source of the embolism. The patient does not sound to have a true allergy to the IV contrast dye. When I spoke with radiology the decision was made to pre-medicate the patient with prednisone and benadryl as he does develop some SOB with the infusion. The patient is reluctantly agreeable. He dislikes how he feels when he gets the IV contrast dye. Plan will be for CTA tomorrow at 0700. If no thrombus identified then the patient will go home and follow up with the Vascular surgery group this coming Thursday. For now continue ASA.
[2016-08-26] MEDS ORDERED: Lisinopril TAB* 5 MG PO ONE (20:02)
[2016-08-27] MEDS: predniSONE TAB* 50 MG PO SCH ×2 (00:35→06:14)
[2016-08-27] MEDS ORDERED: diPHENhydraMINE IV* 50 MG/ML 1 ml VIAL (BENADRYL) IV ONE (06:00)
[2016-08-27] MEDS ORDERED: Heparin VIAL(*) 5000 UNITS/ML VIAL (FIVE THOUSAND) SUBCUT SCH (06:00)
[2016-08-27] MEDS: Omeprazole CAP* 20 MG PO SCH (06:05)
[2016-08-27] MEDS ORDERED: Iodixanol* (CONTRAST) 320 MG/ML 100 ML SDV IV ONE (08:12)
[2016-08-27] MEDS ORDERED: predniSONE TAB* 50 MG PO SCH (09:00)
[2016-08-27] MEDS ORDERED: Lisinopril TAB* 5 MG PO SCH (09:00)
[2016-08-27 09:01] VITALS: BP 128/68
[2016-08-27] MEDS: Atorvastatin* 20 MG TAB PO SCH (09:01)
[2016-08-27] MEDS: Docusate CAP* 100 MG PO SCH (09:01)
[2016-08-27] MEDS: Aspirin TAB* 325 MG PO SCH (09:01)
--- NOTE | 2016-08-27 09:46 | RAD ---
INDICATION: Left blue toe syndrome. 3.9 cm infrarenal abdominal aortic aneurysm. Left SFA stenosis. COMPARISON: CT of the chest/abdomen/pelvis from previous day. Duplex examination of both lower extremities from the previous day. Ultrasound of the aorta and the previous day; noncontrast CT chest abdomen pelvis August 21, 2015 TECHNIQUE: Axial source images were obtained from the thoracic inlet to the symphysis pubis following administration of oral and intravenous contrast. 100 mL Visipaque 320 was utilized. Coronal and sagittal reconstructed images were acquired. CHEST FINDINGS: Neck/thyroid: The visualized neck to include the thyroid appear normal. Chest wall: There are no acute abnormalities of the bony thorax or chest wall. There is no supraclavicular, infraclavicular, or axillary lymphadenopathy. Lungs : There are no pulmonary parenchymal masses or infiltrates. The pulmonary interstitium appears normal. There are no endobronchial lesions. Cardiomediastinal structures: The heart is normal in size. There is no pericardial effusion. There is no evidence of aortic aneurysm or dissection. The pulmonary vessels appear normal. There is no mediastinal or hilar adenopathy. The esophagus appears normal. Pleura : There are no pleural-based masses or effusions. ABDOMINAL/PELVIC FINDINGS: Liver: The liver is normal in size. There are no masses. There is no ductal dilatation. Gallbladder: Cholelithiasis, unchanged. Spleen: The spleen is normal in size. There are degenerative masses. There is heterogeneity consistent with early arterial phase enhancement. Pancreas: There is no evidence of pancreatic mass or ductal dilatation. Adrenal glands: There is no evidence of adrenal mass. Kidneys: The kidneys are normal in size and position. There are prompt nephrograms and there is prompt excretion bilaterally. There are no new renal parenchymal masses. There is post surgical change in the midpole region left kidney compatible with partial nephrectomy. There is a 2 cm midpole right renal lesion for bilateral parapelvic cysts. There is no evidence of nephrolithiasis. Adenopathy: There is no evidence of adenopathy by size criteria. Fluid collections: There are no free or localized fluid collections. Vessels: The thoracic aorta is normal in caliber. The great vessels arise satisfactorily from the aortic arch. There are widely patent single renal arteries bilaterally. There is moderate origin stenosis of the celiac axis with poststenotic dilatation. The SMA appears normal. The FRANSICO is patent. There is a fusiform aneurysm of the infrarenal abdominal aorta with minor circumferential thrombus. The aneurysm measures 3.6 x 3.3 cm in transverse dimensions. The aneurysm extends down to near the bifurcation. The iliac vessels are ectatic and tortuous with intimal calcifications. GI tract: Noncontrast imaging of the bowel demonstrates an unremarkable appearance of the upper GI tract. There are scant diverticula but no CT evidence of diverticulitis.. There are no obstructive findings. Pelvic organs: There is mild prostatic enlargement. The seminal vesicles appear normal Bladder: There are no bladder masses. Abdominal and pelvic soft tissues: The extraperitoneal abdominal and pelvic soft tissues appear normal.. Osseous structures: There are no acute osseous findings. IMPRESSION: 1. No significant CT angiographic abnormalities of the chest. The known infrarenal abdominal aortic aneurysm appears unchanged and is associated only with minor circumferential thrombus. The patient has had extensive imaging thus far which has NOT included CT angiography of the lower extremities which of course is a potential site for emboli. In fact, noninvasive imaging of the lower extremity has been performed shows significant imaging findings to include a left SFA stenosis, and importantly, the absence of a popliteal arterial aneurysms. First, consider vascular surgical referral. CT angiography of the lower extremities may follow. 2. Cholelithiasis 3. Postoperative changes left kidney. Right renal cyst. Bilateral parapelvic cysts. 4. Mild prostatic enlargement
--- NOTE | 2016-08-28 07:10 | DS ---
DISCHARGE SUMMARY: DATE OF ADMISSION: 08/15/16 DATE OF DISCHARGE: 08/27/16 PRIMARY CARE PROVIDER: To be established with Dr. Cornejo. PRINCIPAL DIAGNOSIS: Blue toe syndrome of the left first toe. SECONDARY DIAGNOSES: 1. History of renal cell carcinoma, status post partial left nephrectomy. 2. Hypertension. 3. Hyperlipidemia. 4. History of left lower extremity deep venous thrombosis. 5. Abdominal aortic aneurysm. DISCHARGE MEDICATIONS: 1. Aspirin 81 mg p.o. daily. 2. Plavix 75 mg p.o. daily. 3. Lisinopril 10 mg p.o. daily. 4. Simvastatin 40 mg p.o. daily. 5. Tramadol 50 mg p.o. q.6 hours p.r.n. pain. HOSPITAL COURSE: Mr. Nieves is a 61-year-old male who has not seen a physician in over a year, who presents to the emergency room with complaints of his left first toe being blue and painful. It was felt that the patient likely was suffering from blue toe syndrome. The patient had a contrast allergy listed and therefore in the emergency room, he underwent CT of the abdomen and pelvis without contrast that revealed fusiform aneurysm of the infrarenal abdominal aorta measuring up to 3.6 x 3.3 cm compared with 3.4 x 3.0 cm on 08/21/15 exam. Cholelithiasis was noted and no suspicious focal renal masses were identified on the noncontrast CT scan. Again, due to the potential contrast allergy, the patient then underwent an aorta ultrasound. This revealed fusiform-shaped aneurysm in the distal abdominal aorta measuring 3.9 cm of maximum transverse dimension. There was no comment on whether or not clot was identified. The patient also underwent duplex scan of the lower extremities, this revealed at the distal segment of the superficial femoral artery at the level of the adductor canal on the left, an elevation of the peak systolic velocity up to 345 cm compared with 108 cm more proximally consistent with hemodynamic significant stenosis likely approaching 70%. The patient was admitted to the hospital to obtain an MRA to evaluate for thrombus within the abdominal aortic aneurysm. This was being questioned by Radiology; therefore, I contacted the vascular surgeon again to discuss evaluation options. By this time, I was able to discuss with the patient whether or not he truly had a contrast allergy. The patient described feeling very unwell when he received IV contrast including flushing, nausea, vomiting, and some mild shortness of breath. This do not seem like a true allergy to me; therefore, I spoke with the radiologist who agreed to premedicate the patient given the history of the shortness of breath but this delayed the CTA of the chest, abdomen, and pelvis until . This test was performed this morning. It revealed no significant angiographic abnormalities of the chest. The known infrarenal abdominal aortic aneurysm appears unchanged and is associated with only minor circumferential thrombus. The patient was noted to have had extensive imaging, which has not included CT angiography of the lower extremities, which was felt to be a potential site for emboli. It was recommended to consider Vascular Surgery referral and CT angiography of the lower extremities may need follow. Additionally, the patient underwent transthoracic echocardiogram that revealed borderline to mildly reduced EF of 45% to 50%. Abnormal diastolic filling. No comment was made for a patent foramen ovale. The patient was being maintained on aspirin until the results of the CT angiogram of the chest, abdomen, and pelvis, returned with finding of circumferential thrombus. At that time, I again contacted the vascular surgeon from [facility], who had been consulting by phone on the case, who recommended adding Plavix to his regimen. The patient 's information has been provided to the [facility] Surgery Group to have an appointment arranged for this coming Thursday in [place]. The patient is agreeable to this plan and at this point, felt to be stable for discharge home. FOLLOWUP CONCERNS: The patient is being discharged home today, 08/27/16. I have made new patient appointment with Dr. Cornejo on 09/10/16 at 11:00 a.m. The patient will be contacted by the [facility] with an appointment for this coming Thursday. ACTIVITY LEVEL: As tolerated. DIET: Low fat. CONDITION ON DISCHARGE: Stable. TIME SPENT: Thirty-five minutes was spent discharging this patient. CC: Dr. Cornejo* [id number]/[facility] #: [id number] [facility]
--- NOTE | 2016-10-03 23:11 | ED ---
IIsaias Erika, scribed for Arun Samuels MD on 08/25/16 at 2323 . Progress - Progress Note Progress Note: Patient signed out from Dr. Child. - Results/Orders Results/Orders: CT Chest/Abdomen/Pelvis - ABDOMEN PELVIS IMPRESSION: 1. Fusiform aneurysm of the infrarenal abdominal aorta measuring up to 3.6 x 3.3 cm orthogonal diameter compared with 3.4 x 3.0 cm on the August 21, 2015 exam. 2. Cholelithiasis. 3. No suspicious focal renal lesions within limits of noncontrast CT. Negative for hydronephrosis. 4. Colonic diverticulosis without findings of diverticulitis. Venous Doppler LLE read by Imaging manager transmission - Stenosis of the distal left superficial femoral artery. Abdominal Aortic US read by Imaging manager transmission - 3.9 cm wide fusiform distal aortic aneurysm, without involvement of the bifurcation. Borderline dilated right common iliac artery. Re-Evaluation - Re-Evaluation First Eval Re-Evaluation Time: 21:59 Comment: MD in room to update plan of care involving CTA imagings, hospital admit, and possible transfer for vascular surgery treatment. Course/Dx - Diagnoses Provider Diagnoses: HTN (hypertension) - Provider Notifications Discussed Care Of Patient With: Call out to [facility] at 00:54. Will return call. Discussed care with Dr. Lay (vascular surgery at [facility]) at 00:59 - Discussed US and CT results. Patient does not meet criteria for transfer at this time, and should be admitted [place] [facility] Discussed with Dr. Lopez (hospitalist) at 01:01 - agrees to admit patient. Discharge - Discharge Plan Condition: Fair Disposition: ADMITTED TO [facility] documentation as recorded by the Isaias mccoy Erika accurately reflects the service I personally performed and the decisions made by me, Arun Samuels MD.
== END 2016-08-27 12:40 | disposition home or self-care (01) ==
LOC: ED 19:06 → MED 08-26 01:15
PROVIDERS: ADMIT Hospitalist; ATTEND Hospitalist
DX: I75.022 Atheroembolism of left lower extremity (principal); I10 Essential (primary) hypertension; Z90.5 Acquired absence of kidney; Z85.528 Personal history of other malignant neoplasm of kidney; E78.5 Hyperlipidemia, unspecified; I71.4 Abdominal aortic aneurysm, without rupture; Z79.82 Long term (current) use of aspirin; Z86.718 Personal history of other venous thrombosis and embolism; K80.20 Calculus of gallbladder without cholecystitis without obstruction; K57.90 Diverticulosis of intestine, part unspecified, without perforation or abscess without bleeding; I77.1 Stricture of artery; Z23 Encounter for immunization
CPT/HCPCS: 36415; 71250; 71275; 74174; 74176; 76775; 80053; 80061; 83605; 85025; 85610; 90686; 93005; 93306; 96374; 96375; 99285; A9270-GY; G0378; J0360; J1200; J1644; J7512; Q9967